=== PATIENT | female | born 1955 | race Caucasian/White ===

== ENCOUNTER 2018-10-15 11:16 | Day surgery (SDC) | payer OTHER ==
[~2018-10-15] VITALS: Ht 157.5 cm; Wt 64.9 kg
[2018-10-15 12:00] VITALS: Ht 157.5 cm; Wt 64.9 kg
[2018-10-15] MEDS ORDERED: PRAVASTATIN (12:07)
[2018-10-15] MEDS ORDERED: METFORMIN (12:07)
[2018-10-15 13:16] VITALS: BP 152/65; PULSE 90; RESP 20
[2018-10-15] MEDS ORDERED: FENTAnyl 50 MCG/ML VIAL ONE (14:15)
[2018-10-15] MEDS ORDERED: MIDAZOLAM 1 MG/ML 2 ML INJ ONE ×3 (14:15)
== END 2018-10-15 14:00 | disposition home or self-care (01) ==
LOC: GIL 11:16
PROVIDERS: ATTEND Internal Medicine Gastroenterology
DX: K92.1 Melena (principal); K64.8 Other hemorrhoids; D12.5 Benign neoplasm of sigmoid colon; E11.9 Type 2 diabetes mellitus without complications
CPT/HCPCS: 45380; 82962; 88305; J2250; J3010; Z7610